=== PATIENT | male | born 1990 | race Two or more races ===

== ENCOUNTER 2018-10-07 16:56 | Emergency (ER) | payer OTHER ==
[~2018-10-07] VITALS: Ht 170.2 cm; Wt 68.0 kg
== END 2018-10-07 21:09 | disposition home or self-care (01) ==
LOC: ER 16:56
DX: S61.451A Open bite of right hand, initial encounter (principal); W54.0XXA Bitten by dog, initial encounter; Y93.89 Activity, other specified; Y92.89 Other specified places as the place of occurrence of the external cause; Y99.8 Other external cause status